=== PATIENT | male | born 1940 | race Caucasian/White ===

== ENCOUNTER 2019-11-21 14:42 | Emergency (ER) | payer MEDICARE ==
[~2019-11-21] VITALS: Ht 165.1 cm; Wt 77.3 kg
[2019-11-21 15:54] VITALS: BP 116/82
--- NOTE | 2019-11-21 16:05 | NUR ---
patient to ct.
== END 2019-11-21 17:24 | disposition home or self-care (01) ==
LOC: ER 14:43
DX: R51 Headache (principal); R06.7 Sneezing
CPT/HCPCS: 70450; 99284